=== PATIENT | male | born 1955 | race Caucasian/White ===

== ENCOUNTER 2018-07-06 18:06 | Emergency (ER) | payer MEDICAID ==
[~2018-07-06] VITALS: Ht 167.6 cm; Wt 74.8 kg
[~2018-07-06 18:06] MED LIST: ABILIFY PO; LEXAPRO PO; PRO40 PO; RANITIDINE PO; SEROQUEL PO
[2018-07-06 18:32] VITALS: Ht 167.6 cm; Wt 74.8 kg
[2018-07-06 20:05] VITALS: BP 174/85
== END 2018-07-06 20:05 | disposition home or self-care (01) ==
LOC: ED 18:06
DX: M79.10 Myalgia, unspecified site (principal); R07.89 Other chest pain; F22 Delusional disorders; R21 Rash and other nonspecific skin eruption; F20.9 Schizophrenia, unspecified; F31.9 Bipolar disorder, unspecified

== ENCOUNTER 2018-07-11 07:58 | Emergency (ER) | payer MEDICAID ==
[~2018-07-11] VITALS: Ht 167.6 cm; Wt 72.6 kg
[2018-07-11 08:08] VITALS: BP 165/99; Ht 167.6 cm; Wt 72.6 kg
== END 2018-07-11 08:47 | disposition home or self-care (01) ==
LOC: ED 07:58
DX: B89 Unspecified parasitic disease (principal); F31.9 Bipolar disorder, unspecified; F20.9 Schizophrenia, unspecified

== ENCOUNTER 2019-05-20 06:59 | Emergency (ER) | payer MEDICAID ==
[~2019-05-20] VITALS: Ht 170.2 cm; Wt 73.5 kg
[2019-05-20 07:29] VITALS: BP 176/99; Ht 170.2 cm; Wt 73.5 kg
== END 2019-05-20 09:43 | disposition home or self-care (01) ==
LOC: ED 06:59
DX: S01.01XA Laceration without foreign body of scalp, initial encounter (principal); W22.8XXA Striking against or struck by other objects, initial encounter; Y93.89 Activity, other specified; Y92.89 Other specified places as the place of occurrence of the external cause; Y99.8 Other external cause status
CPT/HCPCS: 90715

== ENCOUNTER 2019-06-05 17:25 | Emergency (ER) | payer MEDICAID ==
[~2019-06-05] VITALS: Ht 167.6 cm; Wt 75.7 kg
[2019-06-05 17:28] VITALS: Ht 167.6 cm; Wt 75.7 kg
[2019-06-05 18:37] LABS: BASOPHIL % 0.2 % (0-2); PLATELET COUNT 183 x10^3mcL (130-400); RED CELL DISTRIBUTION WIDTH 13.8 % (11.5-14.5)
[2019-06-05 18:48] LABS: CALCIUM 8.1 mg/dL (8.5-10.1); CARBON DIOXIDE 24.7 mmol/L (21-32); CHLORIDE SERUM 99 mmol/L (98-107); GFR1 > 60 mL/min; GLUCOSE SERUM 138 mg/dL (74-106); POTASSIUM SERUM 3.3 mmol/L (3.5-5.1); SODIUM SERUM 131 mmol/L (136-145)
[2019-06-05 18:52] LABS: ALKALINE PHOSPHATASE 103 U/L (46-116); ALT/SGPT 28 U/L (16-63); AST/SGOT 18 U/L (15-37); BILIRUBIN TOTAL 0.2 mg/dL (0.20-1.00); CHOLESTEROL 155 mg/dL (<200); CHOLESTEROL/HDL RATIO 3.2; HDL CHOLESTEROL 49 mg/dL (40-60); LIPASE 355 IU/L (73-393); TOTAL PROTEIN, SERUM 6.8 g/dL (6.4-8.2); TRIGLYCERIDES 129 mg/dL (<150)
[2019-06-05 19:01] LABS: ALBUMIN 3.1 g/dL (3.4-5.0); T3 TOTAL 0.85 ng/mL
[2019-06-05 19:03] LABS: FREE T4 0.78 ng/dL (0.76-1.46); FREE THYROXINE INDEX 1.7 ug/dL (1.4-4.5); T4(THYROXINE) 5.1 ug/dL (4.7-13.3)
[2019-06-05 20:37] VITALS: BP 151/75
== END 2019-06-05 20:37 | disposition home or self-care (01) ==
LOC: ED 17:25
PROVIDERS: Specialist
DX: R07.89 Other chest pain (principal)
CPT/HCPCS: 36415; 83880; 84439; J1885; Q0092

== ENCOUNTER 2019-06-12 09:18 | Emergency (ER) | payer MEDICAID ==
[~2019-06-12] VITALS: Ht 170.2 cm; Wt 73.9 kg
[2019-06-12 09:23] VITALS: Ht 170.2 cm; Wt 73.9 kg
[2019-06-12 10:38] LABS: CALCIUM 8.5 mg/dL (8.5-10.1); CARBON DIOXIDE 26.8 mmol/L (21-32); CHLORIDE SERUM 98 mmol/L (98-107); CREATININE SERUM 0.9 mg/dL (0.7-1.3); GFR1 > 60 mL/min; GLUCOSE SERUM 90 mg/dL (74-106); POTASSIUM SERUM 3.8 mmol/L (3.5-5.1); SODIUM SERUM 132 mmol/L (136-145)
[2019-06-12 10:46] LABS: ALKALINE PHOSPHATASE 93 U/L (46-116); ALT/SGPT 30 U/L (16-63); AST/SGOT 15 U/L (15-37); BILIRUBIN TOTAL 0.6 mg/dL (0.20-1.00); TOTAL PROTEIN, SERUM 7.5 g/dL (6.4-8.2)
[2019-06-12 10:47] LABS: ALBUMIN 2.9 g/dL (3.4-5.0); BASOPHIL % 0.2 % (0-2); PLATELET COUNT 233 x10^3mcL (130-400); RED CELL DISTRIBUTION WIDTH 13.5 % (11.5-14.5)
[2019-06-12 11:35] VITALS: BP 166/87
== END 2019-06-12 11:35 | disposition home or self-care (01) ==
LOC: ED 09:18
PROVIDERS: Emergency Medicine
DX: R07.89 Other chest pain (principal); L02.414 Cutaneous abscess of left upper limb
CPT/HCPCS: 36415; J2001; Q0092

== ENCOUNTER 2019-06-14 11:06 | Emergency (ER) | payer MEDICAID ==
[~2019-06-14] VITALS: Ht 170.2 cm; Wt 71.2 kg
[2019-06-14 11:13] VITALS: BP 184/113; Ht 170.2 cm; Wt 71.2 kg
== END 2019-06-14 12:07 | disposition home or self-care (01) ==
LOC: ED 11:06
DX: L02.512 Cutaneous abscess of left hand (principal); Z48.01 Encounter for change or removal of surgical wound dressing

== ENCOUNTER 2019-06-17 12:10 | Emergency (ER) | payer MEDICAID ==
[~2019-06-17] VITALS: Ht 170.2 cm; Wt 73.5 kg
[2019-06-17 12:40] VITALS: BP 143/83; Ht 170.2 cm; Wt 73.5 kg
== END 2019-06-17 13:30 | disposition home or self-care (01) ==
LOC: ED 12:10
DX: L02.414 Cutaneous abscess of left upper limb (principal); Z48.01 Encounter for change or removal of surgical wound dressing